=== PATIENT | male | born 1950 | race Caucasian/White ===

== ENCOUNTER 2019-01-15 07:30 | Inpatient (IN) | payer MEDICARE, OTHER ==
[2019-02-12] MEDS ORDERED: Sodium Chloride 0.9% 10 ML Syringe FLUSH PRN (00:01)
[2019-02-12] MEDS ORDERED: Lidocaine 1%/Sod Bicarbonate in NS 8.4% 1 ML Syringe IDERM PRN (00:01)
[2019-02-12] MEDS ORDERED: Lactated Ringers 1,000 ML IV SCH (00:01)
[2019-02-12] MEDS ORDERED: Pregabalin 25 MG Cap PO SCH (06:00)
[2019-02-12] MEDS ORDERED: Acetaminophen 325 MG Tab PO SCH (06:00)
[2019-02-12] MEDS ORDERED: oxyCODONE ER 10 MG TAB.ER PO SCH (06:00)
--- NOTE | 2019-02-12 08:27 | PCM.CONS ---
H&P History of Present Illness - General Date of Service: 02/12/19 Admit Problem/Dx: Admission Diagnosis/Problem Admission Diagnosis/Problem Osteoarthritis of hip Source of Information: Patient, Provider, RN, RN Notes Reviewed History Limitations: Reports: No Limitations - History of Present Illness Initial Comments - Free Text/Narative: Miller Barcenas is a 69 yo male patient of Dr. Vaz who is post-operative day 0 of right CHANTEL. Hospital medicine was consulted for post-operative medical care. At this time he is resting in bed. Pain is controlled. He denies any chest pain, shortness of breath, palpitations, or vomiting. He is nauseated. He carries a history of: A-fib, aneurism, BPH, recurrent UTIs, onchomycosis, obesity, HTN, SUSAN, cataracts. He is a former smoker. He is a full code. His primary care provider is Liana Richardson PA-C. Grain Unloader Machine is Dr. Owens in [place]. Right Hip Pain Score (Numeric/FACES): 9 - Related Data Allergies/Adverse Reactions: Allergies Allergy/AdvReac Type Severity Reaction Status Date / Time celecoxib [From Celebrex] Allergy Hives Verified 02/12/19 08:26 Home Medications: Home Meds Apixaban [Eliquis] 5 mg PO DAILY 02/09/19 [History] Calcium Carbonate [Calcium] 600 mg PO DAILY 02/09/19 [History] Dutasteride 0.5 mg PO DAILY 02/09/19 [History] Lutein/Min/Vit C/Vit E Acetate [Ocuvite Lutein] 1 cap PO DAILY 02/09/19 [History ] Magnesium 200 mg PO DAILY 02/09/19 [History] Metoprolol Succinate [Toprol XL 100mg] 50 mg PO BEDTIME 02/09/19 [History] Potassium 99 mg PO DAILY 02/09/19 [History] Tamsulosin [Flomax] 0.4 mg PO DAILY 02/09/19 [History] Ubidecarenone [Co Q-10] 10 mg PO DAILY 02/09/19 [History] Cholecalciferol (Vitamin D3) [Vitamin D] 5,000 unit PO DAILY 02/12/19 [History] Metoprolol Succinate [Toprol XL 50mg] 75 mg PO QAM 02/12/19 [History] Past Medical History HEENT History: Reports: Cataract, Hard of Hearing, Impaired Vision, Macular Degeneration, Other (See Below) Other HEENT History: has glasses, has upper denture and lower partial Cardiovascular History: Reports: Afib, Aneurysm, Hypertension Respiratory History: Reports: Sleep Apnea Gastrointestinal History: Reports: None Genitourinary History: Reports: BPH, UTI, Recurrent, Other (See Below) Other Genitourinary History: hematuria TANK ERECTOR History: Reports: None Musculoskeletal History: Reports: Other (See Below) Other Musculoskeletal History: right hip arthralgia, hand pain, ankle sprain, right knee replacement, right carpal tunnel release, left shoulder surgery Neurological History: Reports: Other (See Below) Other Neuro History: syncope Psychiatric History: Reports: None Endocrine/Metabolic History: Reports: Obesity/BMI 30+, Osteopenia Hematologic History: Reports: None Immunologic History: Reports: None Oncologic (Cancer) History: Reports: None Dermatologic History: Reports: Other (See Below) Other Dermatologic History: onchomycosis - Past Surgical History Head Surgeries/Procedures: Reports: None HEENT Surgical History: Reports: Tonsillectomy Cardiovascular Surgical History: Reports: Other (See Below) Other Cardiovascular Surgeries/Procedures: loop recorder Respiratory Surgical History: Reports: None GI Surgical History: Reports: Cholecystectomy, Colonoscopy Female Surgical History: Reports: D&C Male Surgical History: Reports: None Endocrine Surgical History: Reports: None Neurological Surgical History: Reports: None Musculoskeletal Surgical History: Reports: Other (See Below) Other Musculoskeletal Surgeries/Procedures:: left finger surgery with hardware Oncologic Surgical History: Reports: None Social & Family History - Tobacco Use Smoking Status *Q: Former Smoker Used Tobacco, but Quit: Yes Month/Year Tobacco Last Used: 1969 Second Hand Smoke Exposure: No - Caffeine Use Caffeine Use: Reports: Coffee - Recreational Drug Use Recreational Drug Use: No H&P Review of Systems - Review of Systems: Review Of Systems: See Below General: Reports: No Symptoms. Denies: Fever, Chills, Malaise, Fatigue HEENT: Reports: No Symptoms. Denies: Headaches, Sore Throat Pulmonary: Reports: No Symptoms. Denies: Shortness of Breath, Wheezing, Cough, Sputum Cardiovascular: Reports: No Symptoms. Denies: Chest Pain, Palpitations, Dyspnea on Exertion, Edema Gastrointestinal: Reports: Nausea. Denies: Abdominal Pain, Constipation, Diarrhea, Vomiting Genitourinary: Reports: No Symptoms. Denies: Pain Musculoskeletal: Reports: Leg Pain Skin: Reports: No Symptoms. Denies: Cyanosis Psychiatric: Reports: No Symptoms. Denies: Confusion Neurological: Reports: No Symptoms Hematologic/Lymphatic: Reports: No Symptoms Immunologic: Reports: No Symptoms Exam - Exam Exam: See Below - Exam Quality Assessment: DVT Prophylaxis General: Alert, Oriented, Cooperative. No: Mild Distress HEENT: Conjunctiva Clear, EACs Clear, EOMI, Hearing Intact, Mucosa Moist & Desloge , Posterior Pharynx Clear, PERRLA Neck: Supple, Trachea Midline Lungs: Clear to Auscultation, Normal Respiratory Effort Cardiovascular: Regular Rate, Regular Rhythm GI/Abdominal Exam: Normal Bowel Sounds, Soft, Non-Tender, No Organomegaly, No Distention (Male) Exam: Deferred Rectal (Males) Exam: Deferred Back Exam: Normal Inspection, Full Range of Motion Extremities: No Pedal Edema, Normal Capillary Refill, Leg Pain, Limited Range of Motion, Other (Bandage in place on right leg. Bandage is dry and intact. Cooling pack in place. ) Peripheral Pulses: 2+: Radial (L), Radial (R), Dorsalis Pedis (L), Dorsalis Pedis (R) Skin: Warm, Dry, Intact Neurological: Cranial Nerves Intact (grossly ) Neuro Extensive - Mental Status: Alert, Oriented x3, Normal Mood/Affect, Normal Cognition Consult PN Assessment/Plan POD#: 0 (1) S/P total hip arthroplasty SNOMED Code(s): 419319486326, 984966204814 Code(s): Z96.649 - PRESENCE OF UNSPECIFIED ARTIFICIAL HIP JOINT Priority: High Current Visit: Yes Qualifiers: Laterality: right Qualified Code(s): Z96.641 - Presence of right artificial hip joint (2) A-fib SNOMED Code(s): 89656655 Code(s): I48.91 - UNSPECIFIED ATRIAL FIBRILLATION Priority: Medium Current Visit: No Qualifiers: Atrial fibrillation type: unspecified Qualified Code(s): I48.91 - Unspecified atrial fibrillation (3) Obesity SNOMED Code(s): 945664313, 254033801 Code(s): E66.9 - OBESITY, UNSPECIFIED Priority: Low Current Visit: No Qualifiers: Obesity type: unspecified obesity type Obesity classification: unspecified obesity classification Serious obesity comorbidity presence: unspecified whether serious comorbidity present Qualified Code(s): E66.9 - Obesity, unspecified (4) HTN (hypertension) SNOMED Code(s): 84540492 Code(s): I10 - ESSENTIAL (PRIMARY) HYPERTENSION Priority: Low Current Visit: No Qualifiers: Hypertension type: unspecified Qualified Code(s): I10 - Essential (primary ) hypertension (5) SUSAN (obstructive sleep apnea) SNOMED Code(s): 16300376 Code(s): G47.33 - OBSTRUCTIVE SLEEP APNEA (ADULT) (PEDIATRIC) Priority: Low Current Visit: No (6) Osteoarthritis SNOMED Code(s): 382675475 Code(s): M19.90 - UNSPECIFIED OSTEOARTHRITIS, UNSPECIFIED SITE Priority: High Current Visit: Yes Qualifiers: Osteoarthritis location: hip Osteoarthritis type: primary Laterality: right Qualified Code(s): M16.11 - Unilateral primary osteoarthritis, right hip Problem List Initiated/Reviewed/Updated: Yes Plan: I/P: Acute: S/P right total hip arthroplasty - post-operative day 0 -DVT prophylaxis and pain management per primary care team -PT/OT -IS/RT -Monitor oxygen saturation -Titrate oxygen as needed -Vital signs stable -Monitor labs -Pre-operative Hgb was 16.0 -Pre-operative GFR was 63 Osteoarthritis of right hip -Pain management per primary care team Post-operative nausea -Zofran given - continue PRN -Scopolamine patch ordered Chronic: A-fib Aneurism Recurrent UTIs BPH Onchomycosis Obesity HTN SUSAN Cataracts Plan: CM for discharge planning GI prophylaxis Home medications as indicated Other orders as listed above Routine AM labs He is a full code. His PCP is Liana Richardson PA-C; His Grain Unloader Machine is Dr. Owens in [place]. Thank you for allowing us to participate in the care of this patient!! Requesting Provider: Dr. Vza Date Consult Requested: 02/12/19 Reason for Consult: Post-operative medical managment Patient History Reviewed: Yes Admission H&P Reviewed: Yes Time Spent (in minutes): 40
--- NOTE | 2019-02-12 09:06 | PCM.PREANE ---
Preanesthetic Assessment - Anesthesia/Transfusion/Family Hx Anesthesia History: Prior Anesthesia Without Reaction Family History of Anesthesia Reaction: No Transfusion History: No Prior Transfusion(s) - Review of Systems General: No Symptoms Pulmonary: No Symptoms Cardiovascular: No Symptoms Gastrointestinal: No Symptoms Neurological: Numbness (right finger) Other: Reports: Anxiety - Physical Assessment NPO Status Date: 02/11/19 NPO Status Time: 20:00 Pulse: 60 O2 Sat by Pulse Oximetry: 94 Respiratory Rate: 20 Blood Pressure: 124/85 Temperature: 36.4 C Vital Signs: Last Vital Signs Temp 36.4 C 02/12/19 07:49 Pulse 60 02/12/19 07:49 Resp 20 02/12/19 07:49 BP 124/85 02/12/19 07:49 Pulse Ox 94 L 02/12/19 07:49 Height: 1.83 m Weight: 110.677 kg ASA Class: 2 Mental Status: Alert & Oriented x3 Dentition: Reports: Newell(s) Thyro-Mental Finger Breadths: 2 Mouth Opening Finger Breadths: 3 ROM/Head Extension: Full Lungs: Clear to Auscultation, Normal Respiratory Effort Cardiovascular: Regular Rate, Regular Rhythm - Lab Values: Laboratory Last Values MRSA (PCR) Negative 01/10/19 14:33 - Imaging/EKG Impressions: EKG on chart SR RBBB - Allergies Allergies/Adverse Reactions: Allergies Allergy/AdvReac Type Severity Reaction Status Date / Time celecoxib [From Celebrex] Allergy Hives Verified 02/12/19 08:26 - Anesthesia Plan Pre-Op Medication Ordered: Beta Shaina Beta Shaina: Metoprolol Med Last Dose Date: 02/12/19 Med Last Dose Time: 04:30 - Acknowledgements Anesthesia Type Planned: Spinal Pt an Appropriate Candidate for the Planned Anesthesia: Yes Alternatives and Risks of Anesthesia Discussed w Pt/Guardian: Yes Pt/Guardian Understands and Agrees with Anesthesia Plan: Yes PreAnesthesia Questionnaire HEENT History: Reports: Cataract, Hard of Hearing, Impaired Vision, Macular Degeneration, Other (See Below) Other HEENT History: has glasses, has upper denture and lower partial Cardiovascular History: Reports: Afib, Aneurysm, Hypertension Respiratory History: Reports: Sleep Apnea Gastrointestinal History: Reports: None Genitourinary History: Reports: BPH, UTI, Recurrent, Other (See Below) Other Genitourinary History: hematuria OPERATIONAL RISK MANAGER History: Reports: None Musculoskeletal History: Reports: Other (See Below) Other Musculoskeletal History: right hip arthralgia, hand pain, ankle sprain, right knee replacement, right carpal tunnel release, left shoulder surgery Neurological History: Reports: Other (See Below) Other Neuro History: syncope Psychiatric History: Reports: None Endocrine/Metabolic History: Reports: Obesity/BMI 30+, Osteopenia Hematologic History: Reports: None Immunologic History: Reports: None Oncologic (Cancer) History: Reports: None Dermatologic History: Reports: Other (See Below) Other Dermatologic History: onchomycosis - Past Surgical History Head Surgeries/Procedures: Reports: None HEENT Surgical History: Reports: Tonsillectomy Cardiovascular Surgical History: Reports: Other (See Below) Other Cardiovascular Surgeries/Procedures: loop recorder Respiratory Surgical History: Reports: None GI Surgical History: Reports: Cholecystectomy, Colonoscopy Female Surgical History: Reports: D&C Male Surgical History: Reports: None Endocrine Surgical History: Reports: None Neurological Surgical History: Reports: None Musculoskeletal Surgical History: Reports: Other (See Below) Other Musculoskeletal Surgeries/Procedures:: left finger surgery with hardware Oncologic Surgical History: Reports: None - SUBSTANCE USE Smoking Status *Q: Former Smoker Tobacco Use Within Last Twelve Months: Cigarettes Second Hand Smoke Exposure: No Days Per Week of Alcohol Use: 1 Number of Drinks Per Day: 1 Total Drinks Per Week: 1 Recreational Drug Use History: No - HOME MEDS Home Medications: Home Meds Apixaban [Eliquis] 5 mg PO DAILY 02/09/19 [History] Calcium Carbonate [Calcium] 600 mg PO DAILY 02/09/19 [History] Dutasteride 0.5 mg PO DAILY 02/09/19 [History] Lutein/Min/Vit C/Vit E Acetate [Ocuvite Lutein] 1 cap PO DAILY 02/09/19 [History ] Magnesium 200 mg PO DAILY 02/09/19 [History] Metoprolol Succinate [Toprol XL 100mg] 50 mg PO BEDTIME 02/09/19 [History] Potassium 99 mg PO DAILY 02/09/19 [History] Tamsulosin [Flomax] 0.4 mg PO DAILY 02/09/19 [History] Ubidecarenone [Co Q-10] 10 mg PO DAILY 02/09/19 [History] Cholecalciferol (Vitamin D3) [Vitamin D] 5,000 unit PO DAILY 02/12/19 [History] Metoprolol Succinate [Toprol XL 50mg] 75 mg PO QAM 02/12/19 [History] - CURRENT (IN HOUSE) MEDS Current Meds: Current Medications Acetaminophen (Tylenol) 975 mg PO ONETIME REPLACED BY [facility] Stop: 02/12/19 12:00 Last Admin: 02/12/19 08:20 Dose: 975 mg Bisacodyl (Dulcolax) 5 mg PO DAILY PRN PRN Reason: Constipation Morphine Sulfate 8 mg/Epinephrine HCl 0.3 mg/Cefuroxime Sodium 750 mg/Sodium Chloride 28.9 ml 0 mg .XX ONETIME ONE Stop: 02/12/19 10:01 Cyclobenzaprine HCl (Flexeril) 10 mg PO TID PRN PRN Reason: Spasms Docusate Sodium (Colace) 100 mg PO BID REPLACED BY [facility] Lactated Ringer's (Ringers, Lactated) 1,000 mls @ 125 mls/hr IV ASDIRECTED REPLACED BY [facility] Stop: 02/12/19 23:00 Last Admin: 02/12/19 08:05 Dose: 125 mls/hr Cefazolin Sodium/Dextrose 2 gm (/ Premix) 50 mls @ 100 mls/hr IV Q8H REPLACED BY [facility] Stop: 02/12/19 23:29 Lidocaine/Sodium Bicarbonate (Buffered Lidocaine 1% In Ns 8.4%) 0.25 ml IDERM ONETIME PRN PRN Reason: Prior to IV Start Stop: 02/12/19 18:00 Last Admin: 02/12/19 08:05 Dose: 0.25 ml Magnesium Hydroxide (Milk Of Magnesia) 30 ml PO BID PRN PRN Reason: Constipation Morphine Sulfate (Morphine) 2 mg IVPUSH Q2H PRN PRN Reason: Breakthrough Pain Naloxone HCl (Narcan) 0.1 mg IVPUSH Q5M PRN PRN Reason: Oversedation Ondansetron HCl (Zofran) 4 mg IVPUSH Q6H PRN PRN Reason: Nausea/Vomiting Oxycodone HCl (Oxycontin) 10 mg PO ASDIRECTED REPLACED BY [facility] Stop: 02/12/19 12:00 Last Admin: 02/12/19 08:19 Dose: 10 mg Oxycodone/Acetaminophen (Percocet 325-5 Mg) 1 - 2 tab PO Q4H PRN PRN Reason: Pain Pregabalin (Lyrica) 50 mg PO ONETIME THU Stop: 02/12/19 12:00 Last Admin: 02/12/19 08:18 Dose: 50 mg Senna (Senna) 8.6 mg PO BID PRN PRN Reason: Constipation Sodium Chloride (Saline Flush) 10 ml FLUSH ASDIRECTED PRN PRN Reason: Keep Vein Open Stop: 02/12/19 18:00 Discontinued Medications Bupivacaine HCl (Marcaine 0.25%) Confirm Administered Dose 30 ml .ROUTE .STK- MED ONE Stop: 02/12/19 08:33 Cefazolin Sodium (Ancef) Confirm Administered Dose 2 gm .ROUTE .STK-MED ONE Stop: 02/12/19 08:33 Iodine (Iodine 2% Mild Tincture) Confirm Administered Dose 30 ml .ROUTE .STK- MED ONE Stop: 02/12/19 08:33 Tranexamic Acid (Cyklokapron) Confirm Administered Dose 1,000 mg .ROUTE .STK- MED ONE Stop: 02/12/19 08:32 Vancomycin HCl (Vancomycin) Confirm Administered Dose 1 gm .ROUTE .STK-MED ONE Stop: 02/12/19 08:33
[2019-02-12] MEDS ORDERED: Ondansetron 4 MG/2 ML SDV ONE (09:21)
[2019-02-12] MEDS ORDERED: Midazolam 1 MG/ML 2 ML SDV ONE (09:21)
[2019-02-12] MEDS ORDERED: fentaNYL 100 MCG/2 ML SDV ONE (09:21)
[2019-02-12] MEDS ORDERED: Propofol 200 MG/20 ML SDV ONE ×2 (09:21→10:20)
[2019-02-12] MEDS ORDERED: Lidocaine 1% 4 ML ONE (09:22)
[2019-02-12] MEDS ORDERED: ceFAZolin 1 GM Vial ONE (09:22)
[2019-02-12] MEDS ORDERED: Morphine PF 10 MG/10 ML SDV ONE (09:25)
[2019-02-12] MEDS ORDERED: Morphine 8 MG, EPINEPHrine 0.3 MG, Cefuroxime 750 MG, Sodium Chloride 0.9% 28.9 ML ONE ×4 (10:00)
[2019-02-12] MEDS ORDERED: Ketamine 500 mg/10 ML MDV ONE (10:03)
[2019-02-12] MEDS: Bupivacaine 0.25% 30 ML SDV ONE ×2 (10:22→10:48)
[2019-02-12] MEDS: ceFAZolin 1 GM Vial ONE ×2 (10:23→10:41)
[2019-02-12] MEDS: Iodine/Sodium Iodide 2% Tincture 30 ML Bottle ONE ×2 (10:23→10:40)
[2019-02-12] MEDS: Vancomycin 1 GM SDV ONE ×2 (10:28→10:49)
[2019-02-12] MEDS ORDERED: Ondansetron 4 MG/2 ML SDV IVPUSH PRN ×2 (11:00→11:26)
[2019-02-12] MEDS ORDERED: Cyclobenzaprine 10 MG Tab PO PRN (11:00)
[2019-02-12] MEDS ORDERED: Bisacodyl 5 MG Tab PO PRN (11:00)
[2019-02-12] MEDS ORDERED: Magnesium Hydroxide 400 MG/5 ML Susp 30 ML Cup PO PRN (11:00)
[2019-02-12] MEDS ORDERED: Morphine 2 MG/ML Syringe IVPUSH PRN (11:00)
[2019-02-12] MEDS ORDERED: Sennosides 8.6 MG Tab PO PRN (11:00)
[2019-02-12] MEDS ORDERED: Naloxone 0.4 MG/ML SDV IVPUSH PRN (11:00)
--- NOTE | 2019-02-12 11:25 | PCM.POSTAN ---
POST ANESTHESIA ASSESSMENT - MENTAL STATUS Mental Status: Alert, Oriented - VITAL SIGNS Pulse Rate: 51 SaO2: 94 Resp Rate: 10 Blood Pressure: 101/74 Temperature: 36.3 C - RESPIRATORY Respiratory Status: Respiratory Rate WNL, Airway Patent, O2 Saturation Stable, Supplemental Oxygen - CARDIOVASCULAR CV Status: Pulse Rate WNL, Blood Pressure Stable - GASTROINTESTINAL GI Status: No Symptoms - PAIN Pain Score: 0 - POST OP HYDRATION Hydration Status: Adequate & Stable
[2019-02-12] MEDS ORDERED: fentaNYL 100 MCG/2 ML SDV IVPUSH PRN (11:26)
[2019-02-12] MEDS ORDERED: diphenhydrAMINE 50 MG/ML SDV IVPUSH PRN (11:26)
--- NOTE | 2019-02-12 12:06 | CR ---
Pelvis and right hip: AP view of the pelvis was obtained as well as lateral view of the right hip. Comparison: No prior pelvis or right hip exam. Right hip prosthesis is seen. Components are aligned. Underlying bony structures are intact. Impression: 1. Satisfactory postoperative radiographic appearance of recently placed right hip prosthesis. Diagnostic code #2
[2019-02-12] MEDS ORDERED: Scopolamine 1.5 MG Transdermal Patch TRDERM SCH (16:00)
[2019-02-12] MEDS ORDERED: Metoprolol Tartrate 5 MG/5 ML SDV IVPUSH PRN (16:43)
[2019-02-12] MEDS: ceFAZolin 2 GM in Premix Bag 1 BAG IV SCH (18:17)
[2019-02-12] MEDS ORDERED: Metoprolol Succinate 50 MG Tab.ER PO SCH (21:00)
[2019-02-12] MEDS: Docusate Sodium 100 MG Cap PO SCH (22:08)
[2019-02-12] MEDS: Tamsulosin 0.4 MG Cap.ER PO SCH (22:08)
[2019-02-12] MEDS: Finasteride 5 MG Tab PO SCH (22:11)
[2019-02-13] MEDS: Acetaminophen/oxyCODONE 325-5 MG Tab PO PRN ×2 (00:41→06:43)
[2019-02-13] MEDS: ceFAZolin 2 GM in Premix Bag 1 BAG IV SCH ×2 (02:17→09:47)
--- NOTE | 2019-02-13 06:54 | PCM.CONSN ---
- General Info Date of Service: 02/13/19 Admission Dx/Problem (Free Text): Admission Diagnosis/Problem Admission Diagnosis/Problem Osteoarthritis of hip Subjective Update: In to see Miller. He is doing well. His nausea has resolved and he reports he feels pretty good today. HR was upper 40's to low 50's last night so metoprolol was held. HR has increased today and will be given. Otherwise labs and vital signs remain stable. No nursing concerns. Functional Status: Reports: Pain Controlled, Tolerating Diet, Ambulating, Urinating, Incentive Spirometry. Denies: New Symptoms - Review of Systems General: Reports: No Symptoms. Denies: Fever, Weakness, Fatigue, Malaise, Chills HEENT: Reports: No Symptoms. Denies: Headaches, Sore Throat Pulmonary: Reports: No Symptoms. Denies: Shortness of Breath, Pleuritic Chest Pain, Cough, Sputum, Wheezing Cardiovascular: Reports: No Symptoms. Denies: Chest Pain, Palpitations, Dyspnea on Exertion, Edema Gastrointestinal: Reports: No Symptoms. Denies: Abdominal Pain, Constipation, Diarrhea, Nausea, Vomiting Genitourinary: Reports: No Symptoms. Denies: Pain Musculoskeletal: Reports: Leg Pain Skin: Reports: No Symptoms. Denies: Cyanosis Neurological: Reports: No Symptoms. Denies: Confusion Psychiatric: Reports: No Symptoms - Patient Data Vitals - Most Recent: Last Vital Signs Temp 98.8 F 02/13/19 04:49 Pulse 80 02/13/19 04:50 Resp 14 02/13/19 04:49 BP 100/66 02/13/19 04:49 Pulse Ox 93 L 02/13/19 04:50 Weight - Most Recent: 244 lb I&O - Last 24 Hours: Intake & Output 02/12/19 02/12/19 02/13/19 14:59 22:59 06:59 Intake Total 25 100 500 Output Total 0 450 Balance 25 100 50 Med Orders - Current: Current Medications Apixaban (Eliquis) 5 mg PO DAILY THU Bisacodyl (Dulcolax) 5 mg PO DAILY PRN PRN Reason: Constipation Calcium Carbonate/Glycine (Calcium Carbonate) 600 mg PO DAILY THU Cholecalciferol (Vitamin D3) 5,000 unit PO DAILY THU Cyclobenzaprine HCl (Flexeril) 10 mg PO TID PRN PRN Reason: Spasms Docusate Sodium (Colace) 100 mg PO BID [facility] Last Admin: 02/12/19 22:08 Dose: 100 mg Finasteride (Proscar) 5 mg PO DAILY [facility] Last Admin: 02/12/19 22:11 Dose: 5 mg Cefazolin Sodium/Dextrose 2 gm (/ Premix) 50 mls @ 100 mls/hr IV Q8H [facility] Stop: 02/13/19 10:29 Last Admin: 02/13/19 02:17 Dose: 100 mls/hr Magnesium Hydroxide (Milk Of Magnesia) 30 ml PO BID PRN PRN Reason: Constipation Magnesium Oxide (Magnesium Oxide) 200 mg PO DAILY [facility] Metoprolol Succinate (Toprol Xl) 50 mg PO BEDTIME [facility] Metoprolol Succinate (Toprol Xl) 75 mg PO QAM [facility] Metoprolol Tartrate (Lopressor) 5 mg IVPUSH Q4H PRN PRN Reason: Tachycardia Miscellaneous Information (Remove Patch) 1 ea TRDERM Q72H [facility] Morphine Sulfate (Morphine) 2 mg IVPUSH Q2H PRN PRN Reason: Breakthrough Pain Naloxone HCl (Narcan) 0.1 mg IVPUSH Q5M PRN PRN Reason: Oversedation Ondansetron HCl (Zofran) 4 mg IVPUSH Q6H PRN PRN Reason: Nausea/Vomiting Last Admin: 02/12/19 13:20 Dose: 4 mg Oxycodone/Acetaminophen (Percocet 325-5 Mg) 1 - 2 tab PO Q4H PRN PRN Reason: Pain Last Admin: 02/13/19 06:43 Dose: 2 tab Scopolamine (Transderm-Scop) 1.5 mg TRDERM Q72H [facility] Last Admin: 02/12/19 16:16 Dose: 1.5 mg Senna (Senna) 8.6 mg PO BID PRN PRN Reason: Constipation Tamsulosin HCl (Flomax) 0.4 mg PO DAILY [facility] Last Admin: 02/12/19 22:08 Dose: 0.4 mg Discontinued Medications Acetaminophen (Tylenol) 975 mg PO ONETIME [facility] Stop: 02/12/19 12:00 Last Admin: 02/12/19 08:20 Dose: 975 mg Bupivacaine HCl (Marcaine 0.25%) Confirm Administered Dose 30 ml .ROUTE .STK- MED ONE Stop: 02/12/19 08:33 Last Admin: 02/12/19 10:48 Dose: 30 ml Cefazolin Sodium (Ancef) Confirm Administered Dose 2 gm .ROUTE .STK-MED ONE Stop: 02/12/19 08:33 Last Admin: 02/12/19 10:41 Dose: 2 gm Cefazolin Sodium (Ancef) Confirm Administered Dose 2 gm .ROUTE .STK-MED ONE Stop: 02/12/19 09:23 Morphine Sulfate 8 mg/Epinephrine HCl 0.3 mg/Cefuroxime Sodium 750 mg/Sodium Chloride 28.9 ml 0 mg .XX ONETIME ONE Stop: 02/12/19 10:01 Last Admin: 02/12/19 10:48 Dose: 758.3 mg Diphenhydramine HCl (Benadryl) 25 mg IVPUSH Q6H PRN PRN Reason: itching Stop: 02/12/19 14:30 Fentanyl (Sublimaze) Confirm Administered Dose 100 mcg .ROUTE .STK-MED ONE Stop: 02/12/19 09:22 Fentanyl (Sublimaze) 50 mcg IVPUSH Q5M PRN PRN Reason: pain Stop: 02/12/19 14:30 Lactated Ringer's (Ringers, Lactated) 1,000 mls @ 125 mls/hr IV ASDIRECTED THU Stop: 02/12/19 23:00 Last Infusion: 02/12/19 16:30 Dose: Infused Lidocaine HCl (Xylocaine-Mpf 1%) Confirm Administered Dose 4 mls @ as directed .ROUTE .STK-MED ONE Stop: 02/12/19 09:23 Iodine (Iodine 2% Mild Tincture) Confirm Administered Dose 30 ml .ROUTE .STK- MED ONE Stop: 02/12/19 08:33 Last Admin: 02/12/19 10:40 Dose: 18 ml Ketamine HCl (Ketalar) Confirm Administered Dose 500 mg .ROUTE .STK-MED ONE Stop: 02/12/19 10:04 Lidocaine/Sodium Bicarbonate (Buffered Lidocaine 1% In Ns 8.4%) 0.25 ml IDERM ONETIME PRN PRN Reason: Prior to IV Start Stop: 02/12/19 18:00 Last Admin: 02/12/19 08:05 Dose: 0.25 ml Midazolam HCl (Versed 1 Mg/Ml) Confirm Administered Dose 2 mg .ROUTE .STK-MED ONE Stop: 02/12/19 09:22 Morphine Sulfate (Duramorph Pf) Confirm Administered Dose 10 mg .ROUTE .STK-MED ONE Stop: 02/12/19 09:26 Non-Formulary Medication (Potassium [Potassium]) 99 mg PO DAILY [facility] Non-Formulary Medication (Ubidecarenone [Co Q-10]) 10 mg PO DAILY [facility] Ondansetron HCl (Zofran) Confirm Administered Dose 4 mg .ROUTE .STK-MED ONE Stop: 02/12/19 09:22 Ondansetron HCl (Zofran) 4 mg IVPUSH ONETIME PRN PRN Reason: Nausea/Vomiting Stop: 02/12/19 14:30 Oxycodone HCl (Oxycontin) 10 mg PO ASDIRECTED [facility] Stop: 02/12/19 12:00 Last Admin: 02/12/19 08:19 Dose: 10 mg Pregabalin (Lyrica) 50 mg PO ONETIME [facility] Stop: 02/12/19 12:00 Last Admin: 02/12/19 08:18 Dose: 50 mg Propofol (Diprivan 20 Ml) Confirm Administered Dose 200 mg .ROUTE .STK-MED ONE Stop: 02/12/19 09:22 Propofol (Diprivan 20 Ml) Confirm Administered Dose 200 mg .ROUTE .STK-MED ONE Stop: 02/12/19 10:21 Sodium Chloride (Saline Flush) 10 ml FLUSH ASDIRECTED PRN PRN Reason: Keep Vein Open Stop: 02/12/19 18:00 Tranexamic Acid (Cyklokapron) Confirm Administered Dose 1,000 mg .ROUTE .STK- MED ONE Stop: 02/12/19 08:32 Last Admin: 02/12/19 10:49 Dose: 1,000 mg Vancomycin HCl (Vancomycin) Confirm Administered Dose 1 gm .ROUTE .STK-MED ONE Stop: 02/12/19 08:33 Last Admin: 02/12/19 10:49 Dose: 1 gm - Exam Quality Assessment: DVT Prophylaxis General: Alert, Oriented, Cooperative, No Acute Distress HEENT: Pupils Equal, Pupils Reactive, EOMI, Mucous Membr. Moist/[place] Neck: Supple, Trachea Midline, No JVD Lungs: Clear to Auscultation, Normal Respiratory Effort Cardiovascular: Regular Rate, Regular Rhythm GI/Abdominal Exam: Normal Bowel Sounds, Soft, Non-Tender, No Organomegaly, No Distention, No Abnormal Bruit (Male) Exam: Deferred Back Exam: Normal Inspection, Full Range of Motion Extremities: No Pedal Edema, Normal Capillary Refill, Leg Pain, Limited Range of Motion, Other (Bandage in place on right leg. Cooling pack in place. ) Peripheral Pulses: 2+: Dorsalis Pedis (L), Dorsalis Pedis (R), 3+: Radial (L), Radial (R) Skin: Warm, Dry, Intact Wound/Incisions: Dressing Dry and Intact, No Drainage Neurological: No New Focal Deficit Psy/Mental Status: Alert, Normal Affect, Normal Mood Consult PN Assessment/Plan POD#: 1 (1) S/P total hip arthroplasty SNOMED Code(s): 466912635823, 713731316796 Code(s): Z96.649 - PRESENCE OF UNSPECIFIED ARTIFICIAL HIP JOINT Priority: High Current Visit: Yes Qualifiers: Laterality: right Qualified Code(s): Z96.641 - Presence of right artificial hip joint (2) A-fib SNOMED Code(s): 14359639 Code(s): I48.91 - UNSPECIFIED ATRIAL FIBRILLATION Priority: Medium Current Visit: No Qualifiers: Atrial fibrillation type: unspecified Qualified Code(s): I48.91 - Unspecified atrial fibrillation (3) Obesity SNOMED Code(s): 698363203, 386703719 Code(s): E66.9 - OBESITY, UNSPECIFIED Priority: Low Current Visit: No Qualifiers: Obesity type: unspecified obesity type Obesity classification: unspecified obesity classification Serious obesity comorbidity presence: unspecified whether serious comorbidity present Qualified Code(s): E66.9 - Obesity, unspecified (4) HTN (hypertension) SNOMED Code(s): 70170975 Code(s): I10 - ESSENTIAL (PRIMARY) HYPERTENSION Priority: Low Current Visit: No Qualifiers: Hypertension type: unspecified Qualified Code(s): I10 - Essential (primary ) hypertension (5) SUSAN (obstructive sleep apnea) SNOMED Code(s): 32608915 Code(s): G47.33 - OBSTRUCTIVE SLEEP APNEA (ADULT) (PEDIATRIC) Priority: Low Current Visit: No (6) Osteoarthritis SNOMED Code(s): 703740476 Code(s): M19.90 - UNSPECIFIED OSTEOARTHRITIS, UNSPECIFIED SITE Priority: High Current Visit: Yes Qualifiers: Osteoarthritis location: hip Osteoarthritis type: primary Laterality: right Qualified Code(s): M16.11 - Unilateral primary osteoarthritis, right hip Problem List Initiated/Reviewed/Updated: Yes My Orders Last 24 Hours: My Active Orders 02/12/19 16:00 CPAP Noctural Home [RT BiPAP/CPAP] [RC] ASDIRECTED Scopolamine [Transderm-Scop] 1.5 mg TRDERM Q72H 02/12/19 16:43 Metoprolol Tartrate [Lopressor] 5 mg IVPUSH Q4H PRN Plan: I/P: Acute: S/P right total hip arthroplasty - post-operative day 1 -DVT prophylaxis and pain management per primary care team -PT/OT -IS/RT -Monitor oxygen saturation -Titrate oxygen as needed -Vital signs stable -Monitor labs -Pre-operative Hgb was 16.0; Now 13.6 -Pre-operative GFR was 63; Now >60 -Pre-operative Bilirubin 2.1; Now 2.4 Osteoarthritis of right hip -Pain management per primary care team Resolved: S/P Post-operative nausea -Zofran given - continue PRN -Scopolamine patch ordered Chronic: A-fib Ascending Aortic Aneurism 3.8cm Recurrent UTIs BPH Onchomycosis Obesity HTN SUSAN Cataracts Plan: CM for discharge planning GI prophylaxis Home medications as indicated Other orders as listed above Routine AM labs He is a full code. His PCP is Liana Richardson PA-C; His Creative Arts Therapist is Dr. Owens in [place]. Overall from a hospitalist standpoint Miller is doing well. He has been up ambulating and working with therapies. His labs and vital signs remain stable. He has urinated and is off of oxygen. No patient or nursing concerns. He will be cleared for discharge pending primary team and PT/OT agreement. Thank you for allowing us to participate in the care of this patient!!
[2019-02-13] MEDS ORDERED: Metoprolol Succinate 25 MG Tab.ER PO SCH (08:00)
--- NOTE | 2019-02-13 08:08 | PCM48HPAN ---
Post Anesthesia Note - EVALUATION WITHIN 48HRS OF ANESTHETIC Vital Signs in Normal Range: Yes Patient Participated in Evaluation: Yes Respiratory Function Stable: Yes Airway Patent: Yes Cardiovascular Function Stable: Yes Hydration Status Stable: Yes Pain Control Satisfactory: Yes Nausea and Vomiting Control Satisfactory: Yes Mental Status Recovered: Yes (no complaints) Pulse Rate: 80 Resp Rate: 14 Temperature: 98.8 F Blood Pressure: 100/66
--- NOTE | 2019-02-13 08:17 | PCM.SURGPN ---
- General Info Date of Service: 02/13/19 POD#: 1 Functional Status: Reports: Pain Controlled, Tolerating Diet, Ambulating, Urinating, Incentive Spirometry, Other (The pt and state pt is doing well. The pt feels prepared for discharge today.) - Patient Data Vitals - Most Recent: Last Vital Signs Temp 98.8 F 02/13/19 08:08 Pulse 80 02/13/19 08:08 Resp 14 02/13/19 08:08 BP 100/66 02/13/19 08:08 Pulse Ox 93 L 02/13/19 04:50 Weight - Most Recent: 244 lb I&O - Last 24 Hours: Intake & Output 02/12/19 02/13/19 02/13/19 22:59 06:59 14:59 Intake Total 220 500 Output Total 0 450 Balance 220 50 Lab Results Last 24 Hrs: Laboratory Results - last 24 hr 02/13/19 02/13/19 Range/Units 06:24 06:24 WBC 12.72 H (4.23-9.07) K/mm3 RBC 4.68 (4.63-6.08) M/mm3 Hgb 13.6 L (13.7-17.5) gm/L Hct 40.5 (40.1-51.0) % MCV 86.5 (79.0-92.2) fl MCH 29.1 (25.7-32.2) pg MCHC 33.6 (32.2-35.5) g/dl RDW Std Deviation 46.6 H (35.1-43.9) fL Plt Count 271 (163-337) K/mm3 MPV 9.5 (9.4-12.3) fl Sodium 137 (136-145) mEq/L Potassium 4.0 (3.5-5.1) mEq/L Chloride 103 (98-107) mEq/L Carbon Dioxide 24 (21-32) mEq/L Anion Gap 14.0 (5-15) BUN 29 H (7-18) mg/dL Creatinine 1.2 (0.7-1.3) mg/dL Est Cr Clr Drug Dosing 65.56 mL/min Estimated GFR (MDRD) > 60 (>60) mL/min BUN/Creatinine Ratio 24.2 H (14-18) Glucose 122 H (80-115) mg/dL Calcium 8.2 L (8.5-10.1) mg/dL Total Bilirubin 2.4 H (0.2-1.0) mg/dL AST 31 (15-37) U/L ALT 39 (16-63) U/L Alkaline Phosphatase 64 (46-116) U/L Total Protein 6.7 (6.4-8.2) g/dl Albumin 3.5 (3.4-5.0) g/dl Globulin 3.2 gm/dL Albumin/Globulin Ratio 1.1 (1-2) Med Orders - Current: Current Medications Apixaban (Eliquis) 5 mg PO BID [facility] Bisacodyl (Dulcolax) 5 mg PO DAILY PRN PRN Reason: Constipation Calcium Carbonate/Glycine (Calcium Carbonate) 600 mg PO DAILY [facility] Cholecalciferol (Vitamin D3) 5,000 unit PO DAILY [facility] Cyclobenzaprine HCl (Flexeril) 10 mg PO TID PRN PRN Reason: Spasms Docusate Sodium (Colace) 100 mg PO BID [facility] Last Admin: 02/12/19 22:08 Dose: 100 mg Finasteride (Proscar) 5 mg PO DAILY [facility] Last Admin: 02/12/19 22:11 Dose: 5 mg Cefazolin Sodium/Dextrose 2 gm (/ Premix) 50 mls @ 100 mls/hr IV Q8H [facility] Stop: 02/13/19 10:29 Last Admin: 02/13/19 02:17 Dose: 100 mls/hr Magnesium Hydroxide (Milk Of Magnesia) 30 ml PO BID PRN PRN Reason: Constipation Magnesium Oxide (Magnesium Oxide) 200 mg PO DAILY [facility] Metoprolol Succinate (Toprol Xl) 50 mg PO BEDTIME [facility] Metoprolol Succinate (Toprol Xl) 75 mg PO QAM [facility] Metoprolol Tartrate (Lopressor) 5 mg IVPUSH Q4H PRN PRN Reason: Tachycardia Miscellaneous Information (Remove Patch) 1 ea TRDERM Q72H [facility] Morphine Sulfate (Morphine) 2 mg IVPUSH Q2H PRN PRN Reason: Breakthrough Pain Naloxone HCl (Narcan) 0.1 mg IVPUSH Q5M PRN PRN Reason: Oversedation Ondansetron HCl (Zofran) 4 mg IVPUSH Q6H PRN PRN Reason: Nausea/Vomiting Last Admin: 02/12/19 13:20 Dose: 4 mg Oxycodone/Acetaminophen (Percocet 325-5 Mg) 1 - 2 tab PO Q4H PRN PRN Reason: Pain Last Admin: 02/13/19 06:43 Dose: 2 tab Scopolamine (Transderm-Scop) 1.5 mg TRDERM Q72H [facility] Last Admin: 02/12/19 16:16 Dose: 1.5 mg Senna (Senna) 8.6 mg PO BID PRN PRN Reason: Constipation Tamsulosin HCl (Flomax) 0.4 mg PO DAILY [facility] Last Admin: 02/12/19 22:08 Dose: 0.4 mg Discontinued Medications Acetaminophen (Tylenol) 975 mg PO ONETIME [facility] Stop: 02/12/19 12:00 Last Admin: 02/12/19 08:20 Dose: 975 mg Bupivacaine HCl (Marcaine 0.25%) Confirm Administered Dose 30 ml .ROUTE .STK- MED ONE Stop: 02/12/19 08:33 Last Admin: 02/12/19 10:48 Dose: 30 ml Cefazolin Sodium (Ancef) Confirm Administered Dose 2 gm .ROUTE .STK-MED ONE Stop: 02/12/19 08:33 Last Admin: 02/12/19 10:41 Dose: 2 gm Cefazolin Sodium (Ancef) Confirm Administered Dose 2 gm .ROUTE .STK-MED ONE Stop: 02/12/19 09:23 Morphine Sulfate 8 mg/Epinephrine HCl 0.3 mg/Cefuroxime Sodium 750 mg/Sodium Chloride 28.9 ml 0 mg .XX ONETIME ONE Stop: 02/12/19 10:01 Last Admin: 02/12/19 10:48 Dose: 758.3 mg Diphenhydramine HCl (Benadryl) 25 mg IVPUSH Q6H PRN PRN Reason: itching Stop: 02/12/19 14:30 Fentanyl (Sublimaze) Confirm Administered Dose 100 mcg .ROUTE .STK-MED ONE Stop: 02/12/19 09:22 Fentanyl (Sublimaze) 50 mcg IVPUSH Q5M PRN PRN Reason: pain Stop: 02/12/19 14:30 Lactated Ringer's (Ringers, Lactated) 1,000 mls @ 125 mls/hr IV ASDIRECTED THU Stop: 02/12/19 23:00 Last Infusion: 02/12/19 16:30 Dose: Infused Lidocaine HCl (Xylocaine-Mpf 1%) Confirm Administered Dose 4 mls @ as directed .ROUTE .STK-MED ONE Stop: 02/12/19 09:23 Iodine (Iodine 2% Mild Tincture) Confirm Administered Dose 30 ml .ROUTE .STK- MED ONE Stop: 02/12/19 08:33 Last Admin: 02/12/19 10:40 Dose: 18 ml Ketamine HCl (Ketalar) Confirm Administered Dose 500 mg .ROUTE .STK-MED ONE Stop: 02/12/19 10:04 Lidocaine/Sodium Bicarbonate (Buffered Lidocaine 1% In Ns 8.4%) 0.25 ml IDERM ONETIME PRN PRN Reason: Prior to IV Start Stop: 02/12/19 18:00 Last Admin: 02/12/19 08:05 Dose: 0.25 ml Midazolam HCl (Versed 1 Mg/Ml) Confirm Administered Dose 2 mg .ROUTE .STK-MED ONE Stop: 02/12/19 09:22 Morphine Sulfate (Duramorph Pf) Confirm Administered Dose 10 mg .ROUTE .STK-MED ONE Stop: 02/12/19 09:26 Non-Formulary Medication (Potassium [Potassium]) 99 mg PO DAILY [facility] Non-Formulary Medication (Ubidecarenone [Co Q-10]) 10 mg PO DAILY [facility] Ondansetron HCl (Zofran) Confirm Administered Dose 4 mg .ROUTE .STK-MED ONE Stop: 02/12/19 09:22 Ondansetron HCl (Zofran) 4 mg IVPUSH ONETIME PRN PRN Reason: Nausea/Vomiting Stop: 02/12/19 14:30 Oxycodone HCl (Oxycontin) 10 mg PO ASDIRECTED [facility] Stop: 02/12/19 12:00 Last Admin: 02/12/19 08:19 Dose: 10 mg Pregabalin (Lyrica) 50 mg PO ONETIME [facility] Stop: 02/12/19 12:00 Last Admin: 02/12/19 08:18 Dose: 50 mg Propofol (Diprivan 20 Ml) Confirm Administered Dose 200 mg .ROUTE .STK-MED ONE Stop: 02/12/19 09:22 Propofol (Diprivan 20 Ml) Confirm Administered Dose 200 mg .ROUTE .STK-MED ONE Stop: 02/12/19 10:21 Sodium Chloride (Saline Flush) 10 ml FLUSH ASDIRECTED PRN PRN Reason: Keep Vein Open Stop: 02/12/19 18:00 Tranexamic Acid (Cyklokapron) Confirm Administered Dose 1,000 mg .ROUTE .STK- MED ONE Stop: 02/12/19 08:32 Last Admin: 02/12/19 10:49 Dose: 1,000 mg Vancomycin HCl (Vancomycin) Confirm Administered Dose 1 gm .ROUTE .STK-MED ONE Stop: 02/12/19 08:33 Last Admin: 02/12/19 10:49 Dose: 1 gm - Exam Wound/Incisions: Dressing Dry and Intact General: Alert, Cooperative, No Acute Distress Lungs: Normal Respiratory Effort Extremities: Other (NVS intact for BLE. Craig's negative for BLE. Right thigh soft.) - Problem List Review Problem List Initiated/Reviewed/Updated: Yes - My Orders Last 24 Hours: Active Orders 24 hr Category Date Time Status CPAP Noctural Home [RT BiPAP/CPAP] [RC] ASDIRECTED Care 02/12/19 16:00 Active Notify Provider [RC] ASDIRECTED Care 02/12/19 11:25 Active Pulse Oximetry [RC] ASDIRECTED Care 02/12/19 11:26 Active Ready for Discharge [RC] PER UNIT ROUTINE Care 02/13/19 08:14 Active Regular Diet [DIET] Diet 02/12/19 Dinner Active Acetaminophen/oxyCODONE [Percocet 325-5 MG] Med 02/12/19 11:00 Active 1 - 2 tab PO Q4H PRN Apixaban [Eliquis] Med 02/13/19 09:00 Active 5 mg PO BID Bisacodyl [Dulcolax] Med 02/12/19 11:00 Active 5 mg PO DAILY PRN Calcium Carbonate Med 02/13/19 09:00 Active 600 mg PO DAILY Cholecalciferol (Vitamin D3) [Vitamin D3] Med 02/13/19 09:00 Active 5,000 unit PO DAILY Cyclobenzaprine [Flexeril] Med 02/12/19 11:00 Active 10 mg PO TID PRN Docusate Sodium [Colace] Med 02/12/19 21:00 Active 100 mg PO BID Finasteride [Proscar] Med 02/13/19 09:00 Active 5 mg PO DAILY Magnesium Hydroxide [Milk of Magnesia] Med 02/12/19 11:00 Active 30 ml PO BID PRN Magnesium Oxide Med 02/13/19 09:00 Active 200 mg PO DAILY Metoprolol Succinate [Toprol XL] Med 02/12/19 21:00 Active 50 mg PO BEDTIME Metoprolol Succinate [Toprol XL] Med 02/13/19 08:00 Active 75 mg PO QAM Metoprolol Tartrate [Lopressor] Med 02/12/19 16:43 Active 5 mg IVPUSH Q4H PRN Morphine Med 02/12/19 11:00 Active 2 mg IVPUSH Q2H PRN Naloxone [Narcan] Med 02/12/19 11:00 Active 0.1 mg IVPUSH Q5M PRN Ondansetron [Zofran] Med 02/12/19 11:00 Active 4 mg IVPUSH Q6H PRN Remove Patch Med 02/15/19 16:00 Active 1 ea TRDERM Q72H Scopolamine [Transderm-Scop] Med 02/12/19 16:00 Active 1.5 mg TRDERM Q72H Sennosides [Senna] Med 02/12/19 11:00 Active 8.6 mg PO BID PRN Tamsulosin [Flomax] Med 02/13/19 09:00 Active 0.4 mg PO DAILY ceFAZolin [Ancef] 2 gm Med 02/12/19 18:00 Active Premix Bag 1 bag IV Q8H Medication Orders Apixaban (Eliquis) 5 mg PO BID [facility] Bisacodyl (Dulcolax) 5 mg PO DAILY PRN PRN Reason: Constipation Calcium Carbonate/Glycine (Calcium Carbonate) 600 mg PO DAILY [facility] Cholecalciferol (Vitamin D3) 5,000 unit PO DAILY [facility] Cyclobenzaprine HCl (Flexeril) 10 mg PO TID PRN PRN Reason: Spasms Docusate Sodium (Colace) 100 mg PO BID [facility] Last Admin: 02/12/19 22:08 Dose: 100 mg Finasteride (Proscar) 5 mg PO DAILY [facility] Last Admin: 02/12/19 22:11 Dose: 5 mg Cefazolin Sodium/Dextrose 2 gm (/ Premix) 50 mls @ 100 mls/hr IV Q8H [facility] Stop: 02/13/19 10:29 Last Admin: 02/13/19 02:17 Dose: 100 mls/hr Infusion: 02/12/19 18:47 Dose: 100 mls/hr Admin: 02/12/19 18:17 Dose: 100 mls/hr Magnesium Hydroxide (Milk Of Magnesia) 30 ml PO BID PRN PRN Reason: Constipation Magnesium Oxide (Magnesium Oxide) 200 mg PO DAILY [facility] Metoprolol Succinate (Toprol Xl) 50 mg PO BEDTIME [facility] Metoprolol Succinate (Toprol Xl) 75 mg PO QAM [facility] Metoprolol Tartrate (Lopressor) 5 mg IVPUSH Q4H PRN PRN Reason: Tachycardia Miscellaneous Information (Remove Patch) 1 ea TRDERM Q72H [facility] Morphine Sulfate (Morphine) 2 mg IVPUSH Q2H PRN PRN Reason: Breakthrough Pain Naloxone HCl (Narcan) 0.1 mg IVPUSH Q5M PRN PRN Reason: Oversedation Ondansetron HCl (Zofran) 4 mg IVPUSH Q6H PRN PRN Reason: Nausea/Vomiting Last Admin: 02/12/19 13:20 Dose: 4 mg Oxycodone/Acetaminophen (Percocet 325-5 Mg) 1 - 2 tab PO Q4H PRN PRN Reason: Pain Last Admin: 02/13/19 06:43 Dose: 2 tab Admin: 02/13/19 00:41 Dose: 1 tab Scopolamine (Transderm-Scop) 1.5 mg TRDERM Q72H [facility] Last Admin: 02/12/19 16:16 Dose: 1.5 mg Senna (Senna) 8.6 mg PO BID PRN PRN Reason: Constipation Tamsulosin HCl (Flomax) 0.4 mg PO DAILY [facility] Last Admin: 02/12/19 22:08 Dose: 0.4 mg - Assessment Assessment (Free Text/Narrative):: POD#1 - right CHANTEL - Plan Plan (Free Text/Narrative):: 1. Hgb 13.6. 2. Resume Eliquis use today. BID use. 3. Discharge to home today. 4. Outpatient therapy. The pt's case was discussed with Dr. Vaz today.
--- NOTE | 2019-02-13 08:19 | PCM.DCSUM1 ---
Discharge Summary - Hospital Course Brief History: Miller is a 69 yo male who underwent right CHANTEL with Dr. Vaz on . The procedure was completed under spinal anesthesia with sedation. The pt tolerated the procedure well and was admitted to the [facility] under Medical-Surgical status. Medical management was provided by the Hospitalist service. The pt's Hospital course was uneventful. The pt's Hgb on POD#1 was 13.6. On POD#1, Eliquis BID was initiated for VTE prophylaxis. SCDs and TEDs were also ordered. A Mepilex dressing was placed at the incision site at the time of surgery and remained clean and dry. The pt participated in P.T. and O.T. and progressed well. He followed the CHANTEL precautions. The pt was allowed to WBAT. On POD#1, the pt was deemed appropriate to discharge to home with his . - Discharge Data Discharge Date: 02/13/19 Discharge Disposition: Home, Self-Care 01 Condition: Good - Patient Summary/Data Consults: Consultations 02/12/19 07:00 OT Evaluation and Treatment [CONS] Routine PT Evaluation and Treatment [CONS] Routine 02/12/19 07:02 Consult to Physician [CONS] Routine - Patient Instructions Diet: Usual Diet as Tolerated Activity: Apply Ice, As Tolerated, Elevate Extremity, Full Weight Bearing Activity, Other: Follow the Total Hip precautions. Driving: Do Not Drive Showering/Bathing: May Shower Wound/Incision Care: Keep Operative Site/Wound Site Clean and Dry, Do NOT Change Dressing Notify Provider of: Fever, Increased Pain, Swelling and Redness, Drainage, Nausea and/or Vomiting Other/Special Instructions: Please get up and moving around EVERY HOUR while awake. This helps to prevent blood clots. Please use your walker and have help with mobility as needed. Take a short walk in your home every hour while awake. Please take the Eliquis blood thinner medication daily as directed. At home, please complete the exercises that you learned during the Hospital stay. Schedule for physical therapy. Use the pain medication as needed. The medication may cause drowsiness and constipation. Contact your primary care provider for instructions if you are constipated. You may use a stool softener like docusate sodium or Colace 100mg twice daily and/or a laxative like Miralax daily for constipation. Increase your water and fiber intake while you are using the pain medication. Discontinue use of the pain medication as soon as able. Please do not use other medications that may cause drowsiness (other pain medications, anxiety pills, cold medications, sleeping pills, etc) while using the prescription pain medication. Do not use alcohol while using the pain medication. Follow the total hip precautions that were instructed during your Hospital stay. Wear the ILAN hose during the day and you may remove these at night. Elevate the limb to decrease swelling. Place ice to the area often. Place a towel between your skin and the blue pad. Use the incentive spirometer often. Take deep breaths throughout the day. Please keep the dressing in place until follow-up. Notify the Clinic if the dressing becomes saturated. Increase your protein intake while you are healing. If you have diabetes, please closely monitor your blood sugars and notify your primary care provider with abnormal values. Elevated blood sugars increases the risk of infection. Call the Clinic with questions or concerns - [phone]. - Discharge Plan *PRESCRIPTION DRUG MONITORING PROGRAM REVIEWED*: No *COPY OF PRESCRIPTION DRUG MONITORING REPORT IN PATIENT LELA: No Prescriptions/Med Rec: Acetaminophen/oxyCODONE [Percocet 325-5 MG] 1 - 2 tab PO Q6H PRN #60 tablet PRN Reason: Pain Cyclobenzaprine [Flexeril] 10 mg PO TID PRN #40 tablet PRN Reason: Spasms Home Medications: Home Meds Apixaban [Eliquis] 5 mg PO BID 02/09/19 [History] Calcium Carbonate [Calcium] 600 mg PO DAILY 02/09/19 [History] Dutasteride 0.5 mg PO DAILY 02/09/19 [History] Magnesium 200 mg PO DAILY 02/09/19 [History] Metoprolol Succinate [Toprol XL 100mg] 50 mg PO BEDTIME 02/09/19 [History] Potassium 99 mg PO DAILY 02/09/19 [History] Tamsulosin [Flomax] 0.4 mg PO DAILY 02/09/19 [History] Ubidecarenone [Co Q-10] 10 mg PO DAILY 02/09/19 [History] Cholecalciferol (Vitamin D3) [Vitamin D] 5,000 unit PO DAILY 02/12/19 [History] Metoprolol Succinate [Toprol XL 50mg] 75 mg PO QAM 02/12/19 [History] Acetaminophen/oxyCODONE [Percocet 325-5 MG] 1 - 2 tab PO Q6H PRN #60 tablet 01/02 [Rx] Bisacodyl [Dulcolax] 5 mg PO DAILY PRN tablet 02/13/19 [Rx] Cyclobenzaprine [Flexeril] 10 mg PO TID PRN #40 tablet 02/13/19 [Rx] Docusate Sodium [Colace] 100 mg PO BID cap 02/13/19 [Rx] Magnesium Hydroxide [Milk of Magnesia] 30 ml PO BID PRN cup 02/13/19 [Rx] Sennosides [Senna] 8.6 mg PO BID PRN tablet 02/13/19 [Rx] Patient Handouts: Total Hip Replacement, [id number] Referrals: Kaila De Los Santos PA-C [Phys[facility]] - - Discharge Summary/Plan Comment DC Time >30 min.: No - Patient Data Vitals - Most Recent: Last Vital Signs Temp 98.8 F 02/13/19 08:08 Pulse 80 02/13/19 08:08 Resp 14 02/13/19 08:08 BP 100/66 02/13/19 08:08 Pulse Ox 93 L 02/13/19 04:50 Weight - Most Recent: 244 lb I&O - Last 24 hours: Intake & Output 02/12/19 02/13/19 02/13/19 22:59 06:59 14:59 Intake Total 220 500 Output Total 0 450 Balance 220 50 Lab Results - Last 24 hrs: Laboratory Results - last 24 hr 02/13/19 02/13/19 Range/Units 06:24 06:24 WBC 12.72 H (4.23-9.07) K/mm3 RBC 4.68 (4.63-6.08) M/mm3 Hgb 13.6 L (13.7-17.5) gm/L Hct 40.5 (40.1-51.0) % MCV 86.5 (79.0-92.2) fl MCH 29.1 (25.7-32.2) pg MCHC 33.6 (32.2-35.5) g/dl RDW Std Deviation 46.6 H (35.1-43.9) fL Plt Count 271 (163-337) K/mm3 MPV 9.5 (9.4-12.3) fl Sodium 137 (136-145) mEq/L Potassium 4.0 (3.5-5.1) mEq/L Chloride 103 (98-107) mEq/L Carbon Dioxide 24 (21-32) mEq/L Anion Gap 14.0 (5-15) BUN 29 H (7-18) mg/dL Creatinine 1.2 (0.7-1.3) mg/dL Est Cr Clr Drug Dosing 65.56 mL/min Estimated GFR (MDRD) > 60 (>60) mL/min BUN/Creatinine Ratio 24.2 H (14-18) Glucose 122 H (80-115) mg/dL Calcium 8.2 L (8.5-10.1) mg/dL Total Bilirubin 2.4 H (0.2-1.0) mg/dL AST 31 (15-37) U/L ALT 39 (16-63) U/L Alkaline Phosphatase 64 (46-116) U/L Total Protein 6.7 (6.4-8.2) g/dl Albumin 3.5 (3.4-5.0) g/dl Globulin 3.2 gm/dL Albumin/Globulin Ratio 1.1 (1-2) Med Orders - Current: Current Medications Apixaban (Eliquis) 5 mg PO BID [facility] Bisacodyl (Dulcolax) 5 mg PO DAILY PRN PRN Reason: Constipation Calcium Carbonate/Glycine (Calcium Carbonate) 600 mg PO DAILY [facility] Cholecalciferol (Vitamin D3) 5,000 unit PO DAILY [facility] Cyclobenzaprine HCl (Flexeril) 10 mg PO TID PRN PRN Reason: Spasms Docusate Sodium (Colace) 100 mg PO BID [facility] Last Admin: 02/12/19 22:08 Dose: 100 mg Finasteride (Proscar) 5 mg PO DAILY [facility] Last Admin: 02/12/19 22:11 Dose: 5 mg Cefazolin Sodium/Dextrose 2 gm (/ Premix) 50 mls @ 100 mls/hr IV Q8H [facility] Stop: 02/13/19 10:29 Last Admin: 02/13/19 02:17 Dose: 100 mls/hr Magnesium Hydroxide (Milk Of Magnesia) 30 ml PO BID PRN PRN Reason: Constipation Magnesium Oxide (Magnesium Oxide) 200 mg PO DAILY [facility] Metoprolol Succinate (Toprol Xl) 50 mg PO BEDTIME [facility] Metoprolol Succinate (Toprol Xl) 75 mg PO QAM [facility] Metoprolol Tartrate (Lopressor) 5 mg IVPUSH Q4H PRN PRN Reason: Tachycardia Miscellaneous Information (Remove Patch) 1 ea TRDERM Q72H [facility] Morphine Sulfate (Morphine) 2 mg IVPUSH Q2H PRN PRN Reason: Breakthrough Pain Naloxone HCl (Narcan) 0.1 mg IVPUSH Q5M PRN PRN Reason: Oversedation Ondansetron HCl (Zofran) 4 mg IVPUSH Q6H PRN PRN Reason: Nausea/Vomiting Last Admin: 02/12/19 13:20 Dose: 4 mg Oxycodone/Acetaminophen (Percocet 325-5 Mg) 1 - 2 tab PO Q4H PRN PRN Reason: Pain Last Admin: 02/13/19 06:43 Dose: 2 tab Scopolamine (Transderm-Scop) 1.5 mg TRDERM Q72H [facility] Last Admin: 02/12/19 16:16 Dose: 1.5 mg Senna (Senna) 8.6 mg PO BID PRN PRN Reason: Constipation Tamsulosin HCl (Flomax) 0.4 mg PO DAILY [facility] Last Admin: 02/12/19 22:08 Dose: 0.4 mg Discontinued Medications Acetaminophen (Tylenol) 975 mg PO ONETIME THU Stop: 02/12/19 12:00 Last Admin: 02/12/19 08:20 Dose: 975 mg Bupivacaine HCl (Marcaine 0.25%) Confirm Administered Dose 30 ml .ROUTE .STK- MED ONE Stop: 02/12/19 08:33 Last Admin: 02/12/19 10:48 Dose: 30 ml Cefazolin Sodium (Ancef) Confirm Administered Dose 2 gm .ROUTE .STK-MED ONE Stop: 02/12/19 08:33 Last Admin: 02/12/19 10:41 Dose: 2 gm Cefazolin Sodium (Ancef) Confirm Administered Dose 2 gm .ROUTE .STK-MED ONE Stop: 02/12/19 09:23 Morphine Sulfate 8 mg/Epinephrine HCl 0.3 mg/Cefuroxime Sodium 750 mg/Sodium Chloride 28.9 ml 0 mg .XX ONETIME ONE Stop: 02/12/19 10:01 Last Admin: 02/12/19 10:48 Dose: 758.3 mg Diphenhydramine HCl (Benadryl) 25 mg IVPUSH Q6H PRN PRN Reason: itching Stop: 02/12/19 14:30 Fentanyl (Sublimaze) Confirm Administered Dose 100 mcg .ROUTE .STK-MED ONE Stop: 02/12/19 09:22 Fentanyl (Sublimaze) 50 mcg IVPUSH Q5M PRN PRN Reason: pain Stop: 02/12/19 14:30 Lactated Ringer's (Ringers, Lactated) 1,000 mls @ 125 mls/hr IV ASDIRECTED THU Stop: 02/12/19 23:00 Last Infusion: 02/12/19 16:30 Dose: Infused Lidocaine HCl (Xylocaine-Mpf 1%) Confirm Administered Dose 4 mls @ as directed .ROUTE .STK-MED ONE Stop: 02/12/19 09:23 Iodine (Iodine 2% Mild Tincture) Confirm Administered Dose 30 ml .ROUTE .STK- MED ONE Stop: 02/12/19 08:33 Last Admin: 02/12/19 10:40 Dose: 18 ml Ketamine HCl (Ketalar) Confirm Administered Dose 500 mg .ROUTE .STK-MED ONE Stop: 02/12/19 10:04 Lidocaine/Sodium Bicarbonate (Buffered Lidocaine 1% In Ns 8.4%) 0.25 ml IDERM ONETIME PRN PRN Reason: Prior to IV Start Stop: 02/12/19 18:00 Last Admin: 02/12/19 08:05 Dose: 0.25 ml Midazolam HCl (Versed 1 Mg/Ml) Confirm Administered Dose 2 mg .ROUTE .STK-MED ONE Stop: 02/12/19 09:22 Morphine Sulfate (Duramorph Pf) Confirm Administered Dose 10 mg .ROUTE .STK-MED ONE Stop: 02/12/19 09:26 Non-Formulary Medication (Potassium [Potassium]) 99 mg PO DAILY [facility] Non-Formulary Medication (Ubidecarenone [Co Q-10]) 10 mg PO DAILY [facility] Ondansetron HCl (Zofran) Confirm Administered Dose 4 mg .ROUTE .STK-MED ONE Stop: 02/12/19 09:22 Ondansetron HCl (Zofran) 4 mg IVPUSH ONETIME PRN PRN Reason: Nausea/Vomiting Stop: 02/12/19 14:30 Oxycodone HCl (Oxycontin) 10 mg PO ASDIRECTED THU Stop: 02/12/19 12:00 Last Admin: 02/12/19 08:19 Dose: 10 mg Pregabalin (Lyrica) 50 mg PO ONETIME [facility] Stop: 02/12/19 12:00 Last Admin: 02/12/19 08:18 Dose: 50 mg Propofol (Diprivan 20 Ml) Confirm Administered Dose 200 mg .ROUTE .STK-MED ONE Stop: 02/12/19 09:22 Propofol (Diprivan 20 Ml) Confirm Administered Dose 200 mg .ROUTE .STK-MED ONE Stop: 02/12/19 10:21 Sodium Chloride (Saline Flush) 10 ml FLUSH ASDIRECTED PRN PRN Reason: Keep Vein Open Stop: 02/12/19 18:00 Tranexamic Acid (Cyklokapron) Confirm Administered Dose 1,000 mg .ROUTE .STK- MED ONE Stop: 02/12/19 08:32 Last Admin: 02/12/19 10:49 Dose: 1,000 mg Vancomycin HCl (Vancomycin) Confirm Administered Dose 1 gm .ROUTE .STK-MED ONE Stop: 02/12/19 08:33 Last Admin: 02/12/19 10:49 Dose: 1 gm
[2019-02-13] MEDS: Docusate Sodium 100 MG Cap PO SCH (08:40)
[2019-02-13] MEDS: Tamsulosin 0.4 MG Cap.ER PO SCH (08:43)
[2019-02-13] MEDS: Finasteride 5 MG Tab PO SCH (08:52)
[2019-02-13] MEDS ORDERED: Cholecalciferol (Vitamin D3) 5,000 UNIT Tab PO SCH (09:00)
[2019-02-13] MEDS ORDERED: Apixaban 5 MG Tab PO SCH (09:00)
[2019-02-13] MEDS ORDERED: Magnesium Oxide 400 MG Tab PO SCH (09:00)
[2019-02-13] MEDS ORDERED: Non-Formulary Medication 1 Each (Potassium [Potassium] 99 MG) PO SCH (09:00)
[2019-02-13] MEDS ORDERED: Calcium Carbonate 600 MG Tab PO SCH (09:00)
[2019-02-13] MEDS ORDERED: UBIDECARENONE 10 MG PO SCH (09:00)
--- NOTE | 2019-02-15 07:31 | PCM.OPNOTE ---
- General Post-Op/Procedure Note Date of Surgery/Procedure: 02/12/19 Operative Procedure(s): right total hip arthroplasty Pre Op Diagnosis: right hip osteoarthrosis Post-Op Diagnosis: Same Anesthesia Technique: Local, MAC, Spinal Primary Surgeon: Gabe Vaz Anesthesia Provider: Ivan White Revenue Coordinator: Kaila De Los Santos Revenue Coordinator: Beulah Engle EBYudy in mLs: 300 Complications: None Condition: Good Free Text/Narrative:: size 56 size 5 stem 36 -2.5
--- NOTE | 2019-02-15 09:38 | OR ---
DATE OF OPERATION: 02/12/2019 SURGEON: Gabe Vaz MD OPERATION PERFORMED: Right total hip arthroplasty. PREOPERATIVE DIAGNOSIS: Right hip osteoarthrosis. POSTOPERATIVE DIAGNOSIS: Right hip osteoarthrosis. ANESTHESIA: Local MAC with spinal. ANESTHESIA PROVIDER: Nick Ramos. SUPERCALENDER OPERATOR HELPER: Kaila De Los Santos PA-C, and Beulah Engle LPN. ESTIMATED BLOOD LOSS: 300 mL. COMPLICATIONS: None. CONDITION: Stable. IMPLANTS: 1. Spike size 56 mm Tritanium acetabular cup. 2. [place] size 5 Accolade II stem. 3. Spike size 36 -2.5 mm Biolox femoral head. DESCRIPTION OF PROCEDURE: Th4 patient was identified in the preop holding area where proper site was marked and identified by the surgeon. The patient was taken back to the operating theater, where after adequate anesthesia, the patient was placed in a left lateral decubitus position. Axillary roll was placed. All bony prominences were well padded. Pegs were then placed and well padded. The patient's gluteal fold was parallel to the floor. Right hip was then sterilely prepped and draped in the usual sterile fashion. OR time-out was performed. The patient received 2 g of IV Ancef. At this time, standard posterior incision was made centered over the greater trochanter. This was taken down to the IT band and gluteal fascia, which was incised along the incisional length. Charnley retractor was then placed. Short external rotators were identified and takedown of short external rotators was done from the level of the lesser trochanter to the piriformis. A capsulotomy was also then performed. The hip was dislocated. Neck cut was then completed and found to be adequate. Attention was turned to the acetabulum. Anterior and posterior acetabular retractors were placed. Circumferential removal of the labrum was then done as well as the pulvinar. Starting with a 49 reamer, I was able to ream up to a 56, which was found to have adequate purchase. At this time, a 56 mm Tritanium acetabular cup was impacted in place roughly 45 degrees of abduction and 20 to 30 degrees of anteversion. The 36 mm flat liner was then impacted in place and attention was turned to the femur. A femoral retractor was placed. A box chisel was used out laterally. Starter awl was placed down the canal. Starting with the 0 broach, I was able to broach up to a size 5, which was found to be rotationally and vertically stable. A 36 +0 head was then trialed. The patient was just a small amount longer on that side, so we did decide to go with a 36 - 2.5 head. Otherwise, the hip was stable throughout the complete range of motion with greater than 90 degrees of internal rotation. At this time, hip was dislocated. A size 5 Accolade II stem was impacted into place and then the 36 - 2.5 head was impacted into place. Hip was then relocated. Closure of the short external rotators and capsule was then done with a #5 Ethibond. 1 L dilute Betadine solution along with 3 L of pulse lavage irrigation with Ancef were then irrigated through the right hip. Periarticular injection was then completed. Vancomycin powder as well as topical tranexamic acid was placed. A #2 barbed suture was used for closure of IT band and gluteal fascia, 2-0 Vicryl was used subcutaneously, and Prineo was used for the skin. The patient had a sterile soft dressing applied and sent to the PACU in stable condition. MMODAL /[id number]
[2019-02-15] MEDS ORDERED: Remove Patch*SCOPOLAMINE TRDERM SCH (16:00)
== END 2019-02-13 10:21 | disposition home or self-care (01) | DRG 470 ==
LOC: JD.MS 02-12 07:39 → JD.OB 02-12 12:40
PROVIDERS: ADMIT Orthopaedic Surgery; ATTEND Orthopaedic Surgery
PROC: 0SR904Z Replacement of Right Hip Joint with Ceramic on Polyethylene Synthetic Substitute, Open Approach (ICD-10-PCS; principal; 2019-02-12)
DX: M16.11 Unilateral primary osteoarthritis, right hip (principal); I48.91 Unspecified atrial fibrillation; I10 Essential (primary) hypertension; N40.0 Benign prostatic hyperplasia without lower urinary tract symptoms; G47.33 Obstructive sleep apnea (adult) (pediatric); I71.4 Abdominal aortic aneurysm, without rupture; F41.9 Anxiety disorder, unspecified; H54.7 Unspecified visual loss; H91.90 Unspecified hearing loss, unspecified ear; E66.9 Obesity, unspecified; Z68.33 Body mass index [BMI] 33.0-33.9, adult; Z87.440 Personal history of urinary (tract) infections; Z88.8 Allergy status to other drugs, medicaments and biological substances; Z79.01 Long term (current) use of anticoagulants; Z79.899 Other long term (current) drug therapy; Z90.49 Acquired absence of other specified parts of digestive tract; Z87.891 Personal history of nicotine dependence
CPT/HCPCS: 01214; 36415; 73501-26-RT; 73501-RT; 80053; 85027; 87641; 94760; 97110-GP; 97116-GP; 97161-GP; 97165-GO; 97535-GO; A9270-GY; C1776; J0171; J0690; J0697; J2001; J2250; J2270; J2405; J2704; J3010; J3370; J3490; J7120

== ENCOUNTER 2019-02-20 12:23 | Emergency (ER) | payer MEDICARE, OTHER ==
[2019-02-20] MEDS ORDERED: Adenosine 6 MG/2 ML SDV ONE (12:42)
[2019-02-20] MEDS ORDERED: Adenosine 12 MG/4 ML SDV ONE (12:44)
[2019-02-20] MEDS ORDERED: Adenosine 6 MG/2 ML SDV IVPUSH ONE (12:45)
[2019-02-20] MEDS ORDERED: Diltiazem 50 MG/10 ML SDV IVPUSH STA (12:54)
[2019-02-20] MEDS ORDERED: Diltiazem 125 MG in Sodium Chloride 0.9% 100 ML IV SCH (13:00)
[2019-02-20] MEDS ORDERED: Sodium Chloride 0.9% 1,000 ML IV SCH (13:00)
--- NOTE | 2019-02-20 13:09 | EDM.PDOC ---
ED HPI GENERAL MEDICAL PROBLEM - General Stated Complaint: ELEVATED D DIMER Time Seen by Provider: 02/20/19 12:33 Source of Information: Reports: Patient, Family (), Provider (Mynor Frazier ) History Limitations: Reports: No Limitations - History of Present Illness INITIAL COMMENTS - FREE TEXT/NARRATIVE: The patient has a history of paroxysmal atrial fibrillation since 2011, for which he takes Eliquis. His states that he has an implantable loop recorder , indicating that he is in atrial fibrillation 6% of the time. The patient states that he underwent a right total hip arthroplasty per Dr. Vaz on 02/12/2018. His Eliquis was held prior to surgery, and resumed, he believes, following surgery on 02/12/2019. He was discharged home on Tuesday, . He states that he was doing well until this past 02/18/2019, when he developed depression, diaphoresis, decreased energy, and shortness of breath on exertion. He states that he stopped taking both Percocet and Flexeril , and has not resumed either of them. He states that he called EMS, and they found his heart rate to be normal. He also states that his blood pressure was normal yesterday. The patient states that he developed rapid palpitations this morning. No shortness of breath, although he is unclear if he may have had dyspnea on exertion. He denies having any chest pain. He reports lightheadedness when upright. He states that he has had similar symptoms in the past, when he has been in atrial fibrillation. The patient was seen in the clinic this morning. A CBC, CMP, troponin, D-dimer, urinalysis, and an ECG were performed. The patient's D-dimer returned significantly elevated at 3.54. His ECG demonstrated a "very rapid rhythm" at 157. He was therefore brought to the ED. The patient's PCP is CAROLE Ha, in [place], [place]. His Nipple Threader is in [place], [place] His Urologist is in [place], [place]. - Related Data Allergies Allergy/AdvReac Type Severity Reaction Status Date / Time celecoxib [From Celebrex] Allergy Hives Verified 02/20/19 13:02 Home Meds: Home Meds Apixaban [Eliquis] 5 mg PO BID 02/09/19 [History] Calcium Carbonate [Calcium] 600 mg PO DAILY 02/09/19 [History] Dutasteride 0.5 mg PO DAILY 02/09/19 [History] Magnesium 200 mg PO DAILY 02/09/19 [History] Metoprolol Succinate [Toprol XL 100mg] 50 mg PO BEDTIME 02/09/19 [History] Potassium 99 mg PO DAILY 02/09/19 [History] Tamsulosin [Flomax] 0.4 mg PO DAILY 02/09/19 [History] Ubidecarenone [Co Q-10] 10 mg PO DAILY 02/09/19 [History] Cholecalciferol (Vitamin D3) [Vitamin D] 5,000 unit PO DAILY 02/12/19 [History] Metoprolol Succinate [Toprol XL 50mg] 75 mg PO QAM 02/12/19 [History] Acetaminophen/oxyCODONE [Percocet 325-5 MG] 1 - 2 tab PO Q6H PRN #60 tablet 01/02 [Rx] Bisacodyl [Dulcolax] 5 mg PO DAILY PRN tablet 02/13/19 [Rx] Cyclobenzaprine [Flexeril] 10 mg PO TID PRN #40 tablet 02/13/19 [Rx] Docusate Sodium [Colace] 100 mg PO BID PRN 02/20/19 [History] Sennosides [Senna] 8.6 mg PO DAILY PRN 02/20/19 [History] Past Medical History HEENT History: Reports: Cataract, Macular Degeneration, Other (See Below) Other HEENT History: has glasses, has upper denture and lower partial Cardiovascular History: Reports: Afib (paroxysmal), Hypertension Respiratory History: Reports: Sleep Apnea (nightly CPAP 7) Genitourinary History: Reports: BPH Musculoskeletal History: Reports: Osteoarthritis Endocrine/Metabolic History: Reports: Obesity/BMI 30+ - Past Surgical History HEENT Surgical History: Reports: Tonsillectomy Cardiovascular Surgical History: Reports: Other (See Below) (Implantable loop recorder) GI Surgical History: Reports: Cholecystectomy (August 2018), Colonoscopy Female Surgical History: Reports: D&C Musculoskeletal Surgical History: Reports: Carpal Tunnel (right), Hip Replacement (right, 02/12/2019), Knee Replacement (right), Shoulder Surgery (left) , Other (See Below) (Left 5th finger pinning) Social & Family History - Family History Family Medical History: Noncontributory - Tobacco Use Smoking Status *Q: Never Smoker - Caffeine Use Caffeine Use: Reports: Coffee - Alcohol Use Alcohol Use History: Yes Alcohol Use Frequency: Socially - Recreational Drug Use Recreational Drug Use: No - Living Situation & Occupation Living situation: Reports: , with Spouse Occupation: Retired ED ROS GENERAL - Review of Systems Review Of Systems: ROS reveals no pertinent complaints other than HPI. ED EXAM, GENERAL - Physical Exam Exam: See Below Exam Limited By: No Limitations General Appearance: Alert, WD/WN, No Apparent Distress Eye Exam: Bilateral Eye: EOMI, Normal Inspection Ears: Normal External Exam, Hearing Grossly Normal Nose: Normal Inspection, Normal Mucosa Throat/Mouth: Normal Inspection, Normal Lips, Normal Voice, No Airway Compromise Head: Atraumatic, Normocephalic Neck: Normal Inspection, Full Range of Motion Respiratory/Chest: No Respiratory Distress, Lungs Clear, Normal Breath Sounds, No Accessory Muscle Use Cardiovascular: Normal Peripheral Pulses, No Gallop, No JVD, No Murmur, No Rub, Tachycardia (regular) GI/Abdominal: Normal Bowel Sounds, Soft, Non-Tender, No Organomegaly, No Distention, No Abnormal Bruit, No Mass, Other (Obese) (Male) Exam: Deferred Rectal (Males) Exam: Deferred Back Exam: Normal Inspection, Full Range of Motion, NT Extremities: Normal Inspection, Normal Range of Motion, Normal Capillary Refill Neurological: Alert, Oriented, Normal Cognition, No Motor/Sensory Deficits Psychiatric: Normal Affect Skin Exam: Warm, Dry, Intact, Normal Color, No Rash EKG INTERPRETATION EKG Date: 02/20/19 Time: 10:52 Rhythm: A-Flutter (2:1 conduction) Rate (Beats/Min): 157 [place]: Normal (Borderline LAD) P-Wave: Present QRS: Wide (Non-specific IVCD) ST-T: Normal QT: Prolonged (QTc 531 ms) Comparison: NA - No Prior EKG Course - Vital Signs Last Recorded V/S: Last Vital Signs Temp 37.0 C 02/20/19 15:08 Pulse 90 02/20/19 15:08 Resp 18 02/20/19 15:08 BP 118/84 02/20/19 15:08 Pulse Ox 98 02/20/19 15:08 - Orders/Labs/Meds Meds: Medications Discontinued Medications Generic Name Dose Route Start Last Admin Trade Name Janice OCONNELL Reason Stop Dose Admin Adenosine Confirm 02/20/19 12:42 02/20/19 13:18 Adenocard Administered 02/20/19 12:43 Not Given Dose 18 mg .ROUTE .STK-MED ONE Adenosine Confirm 02/20/19 12:44 02/20/19 13:18 Adenocard Administered 02/20/19 12:45 Not Given Dose 12 mg .ROUTE .STK-MED ONE Adenosine 12 mg 02/20/19 12:45 02/20/19 13:33 Adenocard IVPUSH 02/20/19 12:46 Not Given NOW ONE Adenosine 12 mg 02/20/19 13:45 02/20/19 12:47 Adenocard IVPUSH 02/20/19 13:46 12 mg NOW ONE Administration Diltiazem HCl 5 mg 02/20/19 12:54 02/20/19 13:13 Cardizem IVPUSH 02/20/19 12:55 5 mg ONETIME STA Administration Diltiazem HCl 125 mg/ Sodium 125 mls @ 10 mls/hr 02/20/19 13:00 Chloride IV TITRATE THU Protocol 10 MG/HR Sodium Chloride 1,000 mls @ 100 mls/hr 02/20/19 13:00 02/20/19 13:17 Normal Saline IV 100 mls/hr ASDIRECTED THU Administration - Re-Assessments/Exams Free Text/Narrative Re-Assessment/Exam: 02/20/19 13:05 The patient's ECG initial appears to demonstrate atrial flutter with 2:1 conduction. The patient was given adenosine 12 mg IVP with subsequent decreased AV conduction confirming atrial flutter, however, unfortunately for the patient , he then appeared to exhibit complete heart block or non-conduction for up to 13 seconds, long enough for the patient to fall unresponsive with generalized shaking. When his heartbeat returned, his cognition immediately returned to normal. His repeat ECG at 12:50 appears to demonstrate atrial fibrillation with RVR at 121 bpm. There are no ischemic changes. Normal R-wave progression. No LAD /RAD. No LVH/RVH. No intraventricular conduction delays. The QTc is prolonged at 480 ms. I have ordered diltiazem IVP + drip. 02/20/19 13:17 The patient appears to have converted to a normal sinus rhythm following diltiazem 5 mg IVP. The drip wasn't started. I have ordered discontinuation of the drip and a repeat ECG. 02/20/19 13:32 Repeat ECG at 13:26 demonstrates a normal sinus rhythm at 92 bpm. There is no AV block. There is right atrial enlargement. No ischemic changes. Normal R-wave progression. No LAD or RAD. No LVH or RVH. No intraventricular conduction delays. The QTc is within normal limits. 02/20/19 15:04 The patient's postvoid residual was 150 mL. This was discussed with the patient and his . He states that every time he has surgery he has similar competitions, which seemed to resolve after several days. The patient is already under the care of a Urologist, and would prefer to not receive a Mena catheter today. I will refer him to Dr. Rowley in the event that he is unable to reach or see his Urologist in a timely fashion. With respect to the patient's paroxysmal atrial fibrillation, he has remained in a normal sinus rhythm, therefore rate control is not a concern, and he is already on Eliquis, therefore anticoagulation is not a concern. The patient may safely be discharged home. He will follow-up with his head resident to discuss treatment options, that may include cardiac ablation. Departure - Departure Time of Disposition: 15:06 Disposition: Home, Self-Care 01 Condition: Fair Clinical Impression: Paroxysmal atrial fibrillation with rapid ventricular response, Atrial fibrillation/flutter, Urinary retention due to benign prostatic hyperplasia Instructions: Atrial Flutter, Acute Urinary Retention, Male, Atrial Fibrillation Referrals: David Rowley MD [Ordering Only Provider] - Liana Richardson PA [Physician Manager Agriculture] - Forms: ED Department Discharge Additional Instructions: You were seen in the emergency room for an increased heart rate and lightheadedness when upright. On evaluation in the ER, you were initially found to be in atrial flutter with 2 :1 conduction, which converted to atrial fibrillation after you were given adenosine, then, a few minutes later, to a normal sinus rhythm. You were found to have 150 mL of post-void urinary retention, likely due to an enlarged prostate. We recommend that you follow-up with your Nipple Threader in [place], [place], to discuss treatment options for atrial fibrillation. In the meantime, continue to take your usually prescribed medications, including your Eliquis. If you believe that you are back in A-fib, please do not hesitate to return to the ER. A Mena catheter was offered, but declined. We recommend that you follow-up with your Urologist, or Dr. David Rowley in [place], at the next available appointment. If you have difficulty urinating, please do not hesitate to return to the ER.
[2019-02-20] MEDS ORDERED: Adenosine 12 MG/4 ML SDV IVPUSH ONE (13:45)
== END 2019-02-20 15:30 | disposition home or self-care (01) ==
LOC: SUPCPDRO 12:23 → JD.ED 12:23
DX: I48.0 Paroxysmal atrial fibrillation (principal); N40.1 Benign prostatic hyperplasia with lower urinary tract symptoms; R33.8 Other retention of urine; Z79.01 Long term (current) use of anticoagulants; Z79.899 Other long term (current) drug therapy
CPT/HCPCS: 93005; 96361; 96374; 96375; 99285; J0153; J3490; J7040